=== PATIENT | male | born 1975 | race Caucasian/White ===

== ENCOUNTER 2019-06-11 05:03 | Emergency (ER) ==
[2019-06-11 05:19] VITALS: BP 149/109
== END 2019-06-11 06:54 | disposition left against medical advice (07) ==
LOC: ER 05:03
DX: Z53.21 Procedure and treatment not carried out due to patient leaving prior to being seen by health care provider (principal); H91.92 Unspecified hearing loss, left ear

== ENCOUNTER 2019-06-11 07:42 | Emergency (ER) | payer SELFPAY ==
[2019-06-11 08:47] VITALS: BP 139/88
--- NOTE | 2019-06-11 08:52 | ER Document Report ---
ED ENT - General Chief Complaint: Ear Pain Stated Complaint: EAR PAIN Time Seen by Provider: 06/11/19 08:37 Notes: 43-year-old male presents for left ear pain for the last week and a half. Patient states his hearing feels muffled and he feels like there is something in there. Patient also states associated cough. Patient denies any fever or nasal congestion. - Related Data Allergies/Adverse Reactions: No Known Allergies Allergy (Unverified 06/11/19 05:13) Past Medical History - Social History Smoking Status: Current Every Day Smoker Frequency of alcohol use: None Drug Abuse: None Family History: None Patient has suicidal ideation: No Patient has homicidal ideation: No Review of Systems - Review of Systems Notes: Constitutional: Negative for fever. HENT: Positive for left ear pain. Negative for sore throat. Eyes: Negative for visual changes. Cardiovascular: Negative for chest pain. Respiratory: Negative for shortness of breath. Gastrointestinal: Negative for abdominal pain, vomiting or diarrhea. Genitourinary: Negative for dysuria. Musculoskeletal: Negative for back pain. Skin: Negative for rash. Neurological: Negative for headaches, weakness or numbness. 10 point ROS negative except as marked above and in HPI. Physical Exam - Vital signs Vitals: Temp Pulse Resp BP Pulse Ox 97.3 F 93 24 H 149/109 H 95 06/11/19 07:45 06/11/19 07:45 06/11/19 07:45 06/11/19 07:45 06/11/19 07:45 - Notes Notes: GENERAL: Well-appearing, well-nourished and in no acute distress. HEAD: Atraumatic, normocephalic. EYES: Pupils equal round and reactive to light, extraocular movements intact, sclera anicteric, conjunctiva are normal. ENT: Left EAC mildly swollen, pus noted in left EAC, mildly erythematous; Right TM normal, nares patent, oropharynx clear without exudates. Moist mucous membranes. NECK: Normal range of motion, supple without lymphadenopathy or JVD. EXTREMITIES: Normal range of motion, no pitting or edema. No clubbing or cyanosis. NEUROLOGICAL: Cranial nerves II through XII grossly intact. Normal speech, normal gait. PSYCH: Normal mood, normal affect. SKIN: Warm, Dry, normal turgor, no rashes or lesions noted. Course - Re-evaluation Re-evalutation: 12/31/19 08:49 43-year-old male nontoxic, well-appearing. Left ear consistent with otitis externa. No mastoid tenderness. Patient is afebrile. Patient is h ypertensive without diagnosis of hypertension. Patient to be given prescription for eyedrops. Patient also given follow-up with PCP. Return precautions given. Patient voices understanding and agrees with plan of care. - Vital Signs Vital signs: Temp Pulse Resp BP Pulse Ox 97.3 F 93 24 H 149/109 H 95 06/11/19 07:45 06/11/19 07:45 06/11/19 07:45 06/11/19 07:45 06/11/19 07:45 Discharge - Discharge Clinical Impression: Left otitis externa Qualifiers: Otitis externa type: unspecified type Chronicity: acute Qualified Code(s): H60.502 - Unspecified acute noninfective otitis externa, left ear Condition: Stable Disposition: HOME, SELF-CARE Instructions: Use of Ear Drops ([facility]), Otitis Externa ([facility]) Additional Instructions: Please use use eardrops as prescribed. (10 drops daily for 7 to 10 days). Your blood pressure was elevated today. It is important for you to follow-up with a primary care doctor for this. Please follow-up with 1 of the clinics in 3 to 5 days. Return to ER for any worsening symptoms, including fever, worsening ear pain, pain behind her ear, coughing up blood, chest pain, shortness of breath, nausea/vomiting, abdominal pain, or any other symptoms that are concerning to you. Prescriptions: Ofloxacin [Floxin 0.3% Otic Drops 5 ml] 10 drop OT DAILY #1 bottle Referrals: LUIS CARLOS FLANNERY MD [ACTIVE STAFF] - Follow up in 3-5 days [facility] [Provider Group] - Follow up in 3-5 days
== END 2019-06-11 09:02 | disposition home or self-care (01) ==
LOC: ER 07:42
DX: H60.502 Unspecified acute noninfective otitis externa, left ear (principal); H92.02 Otalgia, left ear; R05 Cough; F17.200 Nicotine dependence, unspecified, uncomplicated
CPT/HCPCS: 99282

== ENCOUNTER → 2019-07-10 | Outpatient (CLI) | payer BC ==
--- NOTE | 2019-07-10 11:20 | RADIOLOGY REPORT (SQ) ---
EXAM DESCRIPTION: CHEST PA/LATERAL COMPLETED DATE/TIME: 07/10/2019 10:33 am REASON FOR STUDY: CHRONIC OBSTRUCTIVE PULMONARY DISEASE, UNSPECIFIED COMPARISON: None. EXAM PARAMETERS: NUMBER OF VIEWS: two views TECHNIQUE: Digital Frontal and Lateral radiographic views of the chest acquired. RADIATION DOSE: NA LIMITATIONS: none FINDINGS: LUNGS AND PLEURA: Prominent biasilar interstitial opacities. No focal consolidation. No large effusion. No pneumothorax MEDIASTINUM AND HILAR STRUCTURES: No masses or contour abnormalities. HEART AND VASCULAR STRUCTURES: Heart normal size. No evidence for failure. BONES: No acute findings. HARDWARE: None in the chest. OTHER: No other significant finding. IMPRESSION: Prominent bibasilar interstitial opacities possibly mild edema or atypical infection. No focal consolidation. No pleural effusion. TECHNICAL DOCUMENTATION: JOB ID: [id number]- All Rights Reserved Reading location - IP/workstation name: [email or web address]
== END ==
LOC: OD 10:24
PROVIDERS: ATTEND Family Medicine
DX: J44.9 Chronic obstructive pulmonary disease, unspecified (principal)
CPT/HCPCS: 71046